=== PATIENT | male | born 1990 | race Caucasian/White ===

== ENCOUNTER 2024-01-05 12:13 | Emergency (ER) | payer MEDICARE, SELFPAY ==
[2024-01-05 12:13] VITALS: BP 135/98; PULSE 100; RESP 14; TEMP 36.6; O2SAT 98; BMI 24.1
--- NOTE | 2024-01-05 12:58 | EKG12_ITS ---
Test Reason : CHEST PAIN Blood Pressure : / mmHG Vent. Rate : 074 BPM Atrial Rate : 074 BPM P-R Int : 112 ms QRS Dur : 092 ms QT Int : 356 ms P-R-T Axes : 061 071 051 degrees QTc Int : 395 ms Normal sinus rhythm with sinus arrhythmia Normal ECG Confirmed by Quintin King ([id number]), index editor MARCELINO BARBER ([id number]) on 01/06/2024 9:55:00 AM Referred By: Confirmed By:Quintin King
--- NOTE | 2024-01-05 13:00 | NURSING ---
NO OLD EKGS
[2024-01-05 13:18] LABS: Absolute Lymphocyte Count 2.04 X10^3/uL (0.83-4.51); Absolute Neutrophil Count 8.9 X10^3/uL (2.0-7.7); Basophil# 0.05 X10^3/uL; Basophil% 0.4 % (0-1); Eosinophil# 0.04 X10^3/uL; Eosinophils% 0.3 % (0-5); Hematocrit 48.6 % (40-54); Hemoglobin 15.9 g/dL (13.0-16.5); Lymphocyte # 2.04 X10^3/ul (0.83-4.51); Lymphocyte % 17.1 % (19-41); Mean Corp Hgb Conc 32.7 g/dL (32-36); Mean Corpuscular Hgb 26.9 pg (27.0-32.0); Mean Corpuscular Volume 82.4 fL (80-94); Monocyte# 0.87 X10^3/uL; Monocyte% 7.3 % (0-10); NRBC Flagged by Analyzer 0 % (0-5); Neutrophil # 8.88 X10^3/uL (2.7-7.7); Neutrophil % 74.6 % (47-70); Platelet Count 286 K/mm3 (150-450); RBC Distribution Width SD 36.2 fl (35.1-43.9); White Blood Count 11.9 K/mm3 (4.4-11.0)
--- NOTE | 2024-01-05 13:20 | RAD_ITS ---
STUDY: X-RAY CHEST REASON FOR EXAM: Male, 33 years old. Left-sided chest pain. TECHNIQUE: Single AP portable view of the chest. COMPARISON: None. FINDINGS: EKG electrodes are seen. The lungs are clear and expanded. There is no demonstrated pleural abnormality. Normal size heart. Normal mediastinum and demarco. Normal visualized pulmonary arteries. Normal visualized aortic arch and descending thoracic aorta. Normal visualized thoracic spine. Normal visualized ribs, clavicles, and shoulders. There is no demonstrated abnormality of the visualized soft tissue structures of the upper abdomen. RAD/Chest 1 View (Portable) IMPRESSION: Normal x-ray examination of the chest. Electronically Signed: Aniket Ayers MD at 13:39 EDT ,
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
[2024-01-05 13:37] LABS: Anion Gap 8 (5-15); BUN 20 mg/dL (7-18); BUN/Creat Ratio 20.4 RATIO (10-20); Calcium,Total 9.4 mg/dL (8.5-10.1); Chloride 100 mmol/L (98-107); Creatinine, Serum 0.98 mg/dL (0.70-1.30); EST Glomerular Filtration Rate 93 mL/min (>60); Est Glom Filt Rate - Afr Amer 112 mL/min (>60); Estimated Creatinine Clearance 105.21 ml/min; Glucose 84 mg/dL (74-106); Potassium 4.2 mmol/L (3.5-5.1); Sodium Level 136 mmol/L (136-145); Troponin-I HS 14 pg/mL (3.0-78.0)
[2024-01-05] MEDS: Ondansetron 4 MG/2 ML Vial IV (13:49)
[2024-01-05] MEDS: Ketorolac 15 MG/ML Vial IV (13:49)
[2024-01-05 14:13] VITALS: BP 161/77; PULSE 58; RESP 16; O2SAT 98
[2024-01-05 15:46] VITALS: BP 155/89; PULSE 85; RESP 19; TEMP 36.6; O2SAT 98
== END 2024-01-05 15:47 | disposition home or self-care (01) ==
PROVIDERS: Emergency Provider Student in an Organized Health Care Education/Training Program; Visit Provider Student in an Organized Health Care Education/Training Program
DX: R07.89 Other chest pain (principal); J44.9 Chronic obstructive pulmonary disease, unspecified; R55 Syncope and collapse; F17.210 Nicotine dependence, cigarettes, uncomplicated
CPT/HCPCS: 71045; 80048; 84484; 85025; 93005; 96374; 96375; 99284; A4216; J2405

== ENCOUNTER 2024-01-31 10:40 | Emergency (ER) | payer MEDICARE, SELFPAY ==
[2024-01-31 10:42] VITALS: BP 159/87; PULSE 99; RESP 18; TEMP 36.6; O2SAT 97
[2024-01-31 10:44] VITALS: BMI 25.0
--- NOTE | 2024-01-31 10:52 | RAD_ITS ---
STUDY: X-RAY - SOFT TISSUE NECK REASON FOR EXAM: Male, 33 years old. Dysphagia TECHNIQUE: 2 view(s) of the neck were obtained. COMPARISON: None. FINDINGS: Normal visualized nasopharynx, oropharynx, hypopharynx. Normal epiglottis. Normal visualized subglottic tracheal air column. Normal prevertebral soft tissue structures. Mild degenerative changes in the lower C-spine. The soft tissue structures are unremarkable. RAD/Neck for Soft Tissue IMPRESSION: Normal x-ray soft tissue neck. Electronically Signed: Servando Rai MD at 11:18 EDT ,
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
[2024-01-31] MEDS: DiphenhydrAMINE 25 MG Capsule PO (11:00)
[2024-01-31 12:11] VITALS: BP 137/88; PULSE 78; RESP 18; TEMP 36.6; O2SAT 98
== END 2024-01-31 12:11 | disposition home or self-care (01) ==
PROVIDERS: Emergency Provider Emergency Medicine; Visit Provider Emergency Medicine
DX: R09.89 Other specified symptoms and signs involving the circulatory and respiratory systems (principal); E11.9 Type 2 diabetes mellitus without complications; F17.210 Nicotine dependence, cigarettes, uncomplicated; Z88.0 Allergy status to penicillin
CPT/HCPCS: 70360; 99282

== ENCOUNTER 2024-02-03 11:55 | Emergency (ER) | payer MEDICARE, SELFPAY ==
[2024-02-03 11:55] VITALS: BP 153/96; PULSE 59; RESP 19; TEMP 36.6; O2SAT 98
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
[2024-02-03] MEDS: Ondansetron 4 MG/2 ML Vial IV (13:06)
[2024-02-03] MEDS: morphine 8 MG/ML Syringe IV (13:06)
[2024-02-03] MEDS: 0.9% Normal Saline (1000mL) 1,000 ML 999 ML IV (13:10)
[2024-02-03 13:12] LABS: Bedside Glucose 93 mg/dL (74-106)
[2024-02-03 13:28] LABS: ALB/GLOB Ratio 1.1 RATIO (0.9-2.4); AST(SGOT) 36 U/L (15-37); Alanine Aminotransfer ALT/SGPT 62 U/L (16-61); Albumin, Serum 4.2 g/dL (3.2-5.0); Alkaline Phosphatase 77 U/L (45-117); Anion Gap 7 (5-15); BUN 12 mg/dL (7-18); BUN/Creat Ratio 15.2 RATIO (10-20); Calcium,Total 9.5 mg/dL (8.5-10.1); Chloride 103 mmol/L (98-107); Creatinine, Serum 0.79 mg/dL (0.70-1.30); EST Glomerular Filtration Rate 118 mL/min (>60); Est Glom Filt Rate - Afr Amer 143 mL/min (>60); Globulin 3.8 g/dL (2.2-4.2); Glucose 97 mg/dL (74-106); Lipase 19 U/L (13-75); Potassium 4.1 mmol/L (3.5-5.1); Sodium Level 139 mmol/L (136-145)
[2024-02-03 13:31] LABS: Absolute Lymphocyte Count 1.24 X10^3/uL (0.83-4.51); Absolute Neutrophil Count 6.7 X10^3/uL (2.0-7.7); Basophil# 0.03 X10^3/uL; Basophil% 0.3 % (0-1); Eosinophil# 0.02 X10^3/uL; Eosinophils% 0.2 % (0-5); Hematocrit 48.6 % (40-54); Hemoglobin 15.8 g/dL (13.0-16.5); Lymphocyte # 1.24 X10^3/ul (0.83-4.51); Lymphocyte % 14.2 % (19-41); Mean Corp Hgb Conc 32.5 g/dL (32-36); Mean Corpuscular Hgb 27.1 pg (27.0-32.0); Mean Corpuscular Volume 83.4 fL (80-94); Mean Platelet Vol. 12.3 fl (6.2-12.0); Monocyte# 0.75 X10^3/uL; Monocyte% 8.6 % (0-10); NRBC Flagged by Analyzer 0 % (0-5); Neutrophil # 6.69 X10^3/uL (2.7-7.7); Neutrophil % 76.5 % (47-70); Platelet Count 262 K/mm3 (150-450); RBC Distribution Width CV 12.8 % (11.6-14.6); RBC Distribution Width SD 38.5 fl (35.1-43.9); Red Blood Count 5.83 M/mm3 (4.6-6.2); White Blood Count 8.8 K/mm3 (4.4-11.0)
[2024-02-03 13:39] LABS: Mucous, Urine 0 SEEN /hpf (<or=2+); Red Blood Cells-Urine 0 SEEN /hpf (0-5); Squamous Epithelial Cells - UA 0 SEEN /hpf (0-5)
[2024-02-03 13:40] LABS: Color, Urine Yellow (Yellow); Glucose, Dipstick Normal (Normal); Leukocyte Esterase-Dipstick 25 /ul (Negative); Nitrite-Dipstick Negative (Negative); Occult Blood-Urine Negative /ul (Negative); Protein-Dipstick 30 mg/dl (Negative); Specific Gravity, Urine 1.015 (1.002-1.030); Urine Clarity Clear (Clear); Urine Urobilinogen 1 mg/dl (Normal)
[2024-02-03 13:43] LABS: Urine Bilirubin Dipstick 1 mg/dL (Negative)
[2024-02-03 13:45] LABS: Ketone-Dipstick 150 mg/dl (Negative)
--- NOTE | 2024-02-03 13:45 | CT_ITS ---
STUDY: CT ABDOMEN AND PELVIS WITH CONTRAST REASON FOR EXAM: Male, 33 years old. abd pain RADIATION DOSAGE (If Supplied By Facility): CTDIvol = ( 6.66 ) mGy, DLP = ( 371.86 ) mGycm TECHNIQUE: Transaxial images were obtained from the dome of the diaphragm to the symphysis pubis without oral contrast. IV 100mL Isovue-300 was administered. Sagittal and coronal images were reconstructed. Individualized dose optimization techniques were used for this CT. COMPARISON: None. FINDINGS: Minimal increased markings in the posterior aspect of the lingular segment of the left upper lobe suggestive of atelectasis. The visualized portions of the heart are within normal limits. Normal liver. Normal gallbladder and extrahepatic biliary system. There is evidence of a peripheral calcification along the lateral aspect of the spleen extending from the superior pole to the inferior pole. This may represent cysts or sequela of prior injury. Normal pancreas. Normal bilateral adrenal glands. Normal right kidney. Normal left kidney. Normal visualized stomach. Normal small intestine. Normal colon. The appendix is visualized and appears normal. There is scattered atherosclerotic calcification of the abdominal aorta, without a demonstrated aneurysm. Normal inferior vena cava. There is a small retroperitoneal lymphadenopathy with enlarged nodes no greater than 10mm in the short axis diameter. Normal urinary bladder. Normal abdominal wall. Normal osseous structures. CT/Abdomen/Pelvis W IV Cont ONLY IMPRESSION: Rim-like calcification along the lateral aspect of the spleen extending from the cranial to the caudal region of the spleen suggestive of old injury. N.B. : The above Results were Read Back by Aniket Ayers MD to Santosh Paula MD, and understanding confirmed on 02/03/2024 14:06:25 (ET). Electronically Signed: Aniket Ayers MD at 14:07 EDT ,
[2024-02-03 13:47] LABS: Bacteria 1+ /hpf (None Seen); White Blood Cells 0-5 SEEN /hpf (0-5)
[2024-02-03 13:56] VITALS: BP 140/85; PULSE 58; RESP 17; O2SAT 98
[2024-02-03 14:02] VITALS: PULSE 65; RESP 13; O2SAT 97
[2024-02-03 14:48] VITALS: BP 140/70; PULSE 55; RESP 15; TEMP 36.4; O2SAT 98
== END 2024-02-03 14:55 | disposition home or self-care (01) ==
PROVIDERS: Emergency Provider Emergency Medicine; Visit Provider Emergency Medicine
DX: R10.30 Lower abdominal pain, unspecified (principal); E11.9 Type 2 diabetes mellitus without complications; F17.210 Nicotine dependence, cigarettes, uncomplicated
CPT/HCPCS: 74177; 80053; 81001; 82962; 83690; 85025; 96361; 96374; 96375; 99283; J7030; Q9967; A4216; J2405

== ENCOUNTER 2024-02-27 18:49 | Emergency (ER) | payer MEDICARE, SELFPAY ==
[2024-02-27 18:49] VITALS: BP 162/93; PULSE 87; RESP 16; TEMP 36.6; O2SAT 97; BMI 24.0
[2024-02-27 18:59] VITALS: BMI 24.7
--- NOTE | 2024-02-27 19:16 | CT_ITS ---
INDICATION: weakness EXAMINATION: CT BRAIN - CT Head or Brain W/O Contrast Injection TECHNIQUE: Multiple axial images were obtained of the head without intravenous contrast. The protocol utilizes one or more of the following dose reduction techniques: automated exposure control, adjustment of mA and/or kV according to patient size,and/or use of iterative reconstruction technique. IV Contrast dosage and agent: None. RADIATION DOSAGE (If Supplied By Facility): CTDIvol = ( 44.99 ) mGy, DLP = ( 7453.49 ) mGycm COMPARISON: No relevant prior comparison study available FINDINGS: BRAIN: No acute bleed. No edema. Edwards-white matter differentiation is maintained. VENTRICLES AND SULCI: Not dilated. EXTRA-AXIAL: No hemorrhage, fluid collection, or mass. CALVARIUM / SKULL BASE: Unremarkable. FACE/SINUSES: Unremarkable. SOFT TISSUES: Unremarkable. CT/Brain/Head without Contrast IMPRESSION: No acute abnormality. CT angiogram and/or MRI may be helpful to evaluate for acute infarct as clinically indicated. Electronically Signed: Rosemarie Gupta MD at 19:57 EDT ,
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
--- NOTE | 2024-02-27 19:30 | EKG12_ITS ---
Test Reason : GEN ILLNESS Blood Pressure : / mmHG Vent. Rate : 066 BPM Atrial Rate : 066 BPM P-R Int : 124 ms QRS Dur : 092 ms QT Int : 388 ms P-R-T Axes : 040 067 060 degrees QTc Int : 406 ms Normal sinus rhythm Normal ECG Confirmed by LYNDSEY GORDON MD ([id number]), production editor AMANDA PÉREZ ([id number]) on 03/01/2024 8:14:36 AM Referred By: IMTIAZ Confirmed By:LYNDSEY GORDON MD
[2024-02-27 19:38] LABS: Absolute Lymphocyte Count 1.65 X10^3/uL (0.83-4.51); Absolute Neutrophil Count 6.2 X10^3/uL (2.0-7.7); Basophil# 0.05 X10^3/uL; Basophil% 0.6 % (0-1); Eosinophil# 0.09 X10^3/uL; Hematocrit 45.4 % (40-54); Hemoglobin 14.9 g/dL (13.0-16.5); Lymphocyte # 1.65 X10^3/ul (0.83-4.51); Mean Corp Hgb Conc 32.8 g/dL (32-36); Mean Corpuscular Hgb 27.4 pg (27.0-32.0); Mean Corpuscular Volume 83.5 fL (80-94); Mean Platelet Vol. 11.8 fl (6.2-12.0); Monocyte# 0.68 X10^3/uL; Monocyte% 7.8 % (0-10); NRBC Flagged by Analyzer 0 % (0-5); Neutrophil # 6.18 X10^3/uL (2.7-7.7); Neutrophil % 71.3 % (47-70); Platelet Count 225 K/mm3 (150-450); RBC Distribution Width SD 39.6 fl (35.1-43.9); Red Blood Count 5.44 M/mm3 (4.6-6.2); White Blood Count 8.7 K/mm3 (4.4-11.0)
--- NOTE | 2024-02-27 19:48 | RAD_ITS ---
INDICATION: chest pain EXAMINATION/TECHNIQUE: X-RAY - XR Chest 1 View AP portable. 7:46 PM. COMPARISON: 01/05/2024 FINDINGS: LINES/DEVICES: None. LUNGS: No consolidation. No pneumothorax. MEDIASTINUM: Unremarkable. CARDIAC SILHOUETTE: Not enlarged. BONES AND SOFT TISSUES: No acute abnormalities. RAD/Chest 1 View (Portable) IMPRESSION: No evidence of active intrathoracic disease. Electronically Signed: Rosemarie Gupta MD at 20:14 EDT ,
[2024-02-27 19:52] LABS: Anion Gap 6 (5-15); BUN 14 mg/dL (7-18); BUN/Creat Ratio 14.4 RATIO (10-20); Calcium,Total 9.1 mg/dL (8.5-10.1); Chloride 104 mmol/L (98-107); Creatinine, Serum 0.97 mg/dL (0.70-1.30); EST Glomerular Filtration Rate 93 mL/min (>60); Est Glom Filt Rate - Afr Amer 113 mL/min (>60); Estimated Creatinine Clearance 106.29 ml/min; Glucose 126 mg/dL (74-106); Potassium 3.6 mmol/L (3.5-5.1); Sodium Level 139 mmol/L (136-145); Troponin-I HS 10 pg/mL (3.0-78.0)
[2024-02-27 20:49] VITALS: BP 143/71; PULSE 66; RESP 18; O2SAT 97
[2024-02-27 22:00] VITALS: BP 130/82; PULSE 58; RESP 16; O2SAT 94
[2024-02-27 22:07] VITALS: BP 130/82; PULSE 59; RESP 16; TEMP 36.8; O2SAT 98
== END 2024-02-27 22:07 | disposition home or self-care (01) ==
PROVIDERS: Emergency Provider Emergency Medicine; Visit Provider Emergency Medicine
DX: M62.81 Muscle weakness (generalized) (principal); R07.89 Other chest pain; M25.511 Pain in right shoulder; M25.512 Pain in left shoulder; F17.210 Nicotine dependence, cigarettes, uncomplicated; Z85.841 Personal history of malignant neoplasm of brain
CPT/HCPCS: 70450; 71045; 80048; 84484; 85025; 93005; 99284; A4216

== ENCOUNTER 2024-03-09 16:42 | Emergency (ER) | payer MEDICARE, SELFPAY ==
[2024-03-09 16:43] VITALS: BP 163/75; PULSE 92; RESP 17; TEMP 37.2; O2SAT 99; BMI 22.8
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
[2024-03-09] MEDS: Dicyclomine 20 MG/2 ML Vial IM (17:05)
[2024-03-09] MEDS: DiphenhydrAMINE 50 MG/ML Syringe 25 MG IV (17:05)
[2024-03-09 17:10] LABS: Absolute Lymphocyte Count 1.25 X10^3/uL (0.83-4.51); Absolute Neutrophil Count 17.4 X10^3/uL (2.0-7.7); Basophil# 0.06 X10^3/uL; Basophil% 0.3 % (0-1); Eosinophil# 0.15 X10^3/uL; Eosinophils% 0.7 % (0-5); Hematocrit 48.3 % (40-54); Hemoglobin 15.8 g/dL (13.0-16.5); Lymphocyte # 1.25 X10^3/ul (0.83-4.51); Lymphocyte % 6.2 % (19-41); Mean Corp Hgb Conc 32.7 g/dL (32-36); Mean Corpuscular Hgb 27.7 pg (27.0-32.0); Mean Corpuscular Volume 84.7 fL (80-94); Monocyte% 5.5 % (0-10); NRBC Flagged by Analyzer 0 % (0-5); Neutrophil # 17.38 X10^3/uL (2.7-7.7); Neutrophil % 86.8 % (47-70); Platelet Count 257 K/mm3 (150-450); RBC Distribution Width CV 13.1 % (11.6-14.6); RBC Distribution Width SD 39.9 fl (35.1-43.9)
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
[2024-03-09 17:27] LABS: Color, Urine Yellow (Yellow); Glucose, Dipstick Normal (Normal); Ketone-Dipstick 50 mg/dl (Negative); Leukocyte Esterase-Dipstick 25 /ul (Negative); Nitrite-Dipstick Negative (Negative); Occult Blood-Urine Negative /ul (Negative); Protein-Dipstick Negative (Negative); Red Blood Cells-Urine 0 SEEN /hpf (0-5); Urine Bilirubin Dipstick Negative (Negative); Urine Clarity Sl. Cloudy (Clear); Urine Urobilinogen 4 mg/dl (Normal)
[2024-03-09 17:31] LABS: AST(SGOT) 21 U/L (15-37); Alanine Aminotransfer ALT/SGPT 39 U/L (16-61); Albumin, Serum 4.4 g/dL (3.2-5.0); Alkaline Phosphatase 74 U/L (45-117); Anion Gap 4 (5-15); BUN 11 mg/dL (7-18); BUN/Creat Ratio 11.2 RATIO (10-20); Bilirubin, Direct 0.28 mg/dL (0.00-0.30); Calcium,Total 9.6 mg/dL (8.5-10.1); Chloride 102 mmol/L (98-107); Creatinine, Serum 0.98 mg/dL (0.70-1.30); EST Glomerular Filtration Rate 93 mL/min (>60); Est Glom Filt Rate - Afr Amer 112 mL/min (>60); Estimated Creatinine Clearance 104.62 ml/min; Globulin 3.6 g/dL (2.2-4.2); Glucose 91 mg/dL (74-106); Lipase 15 U/L (13-75); Potassium 3.9 mmol/L (3.5-5.1); Sodium Level 136 mmol/L (136-145)
[2024-03-09 17:37] LABS: Amorphous Sediment 1+; Bacteria 1+ /hpf (None Seen); Squamous Epithelial Cells - UA 0-5 SEEN /hpf (0-5); White Blood Cells 0-5 SEEN /hpf (0-5)
--- NOTE | 2024-03-09 17:39 | CT_ITS ---
INDICATION: abdominal pain EXAMINATION: CT ABDOMEN AND PELVIS with CONTRAST - CT Abdomen And Pelvis W/ Contrast Injection TECHNIQUE: Multiple axial images were obtained of the abdomen and pelvis following administration of IV contrast. Planar reconstructions obtained. A radiation dose optimization technique was used for this scan. RADIATION DOSAGE (If Supplied By Facility): CTDIvol = ( 11.91 ) mGy, DLP = ( 536.81 ) mGycm IV Contrast dosage and agent: 100 mL [id number] Oral contrast: None. COMPARISON: 02/03/2024 FINDINGS: LOWER CHEST: 1. Lung bases are clear. 2. No cardiomegaly or pericardial effusion. 3. No significant coronary vascular calcifications. HEPATOBILIARY: Liver: The liver is homogeneous and shows no evidence of focal lesion. Gallbladder: The gallbladder is unremarkable. Pancreas: Pancreas is normal size configuration and density. No mass is noted. Spleen: Spleen has unchanged size and configuration. There is a sheetlike pattern of hyperdensity along the surface of the spleen laterally without interval change in previously suggested within the peripheral rim calcification. There has been negligible change.. BOWEL: Stomach: The stomach is normal in size configuration, no evidence of focal masses, abnormal calcifications. No hiatal hernia noted. Bowel: Small and large have normal configuration, no masses or bowel obstruction noted. There are scattered segments of fluid-filled bowel with small air-fluid levels. Findings are nonspecific. Appendix: The visualized appendix has normal appearance.: GENITOURINARY: Adrenals: Both adrenal glands are normal in size. Kidneys: Kidneys appear symmetric in size. No calcifications are seen in the collecting system. There is no hydronephrosis or surrounding fluid. Bladder: Normal Pelvic organs: The visualized pelvic organs are normal in size and configuration. No masses or adenopathy noted. RETROPERITONEUM: There is normal appearance of the abdominal aorta and inferior vena cava. LYMPH NODES: No evidence of retroperitoneal or para-aortic masses fluid collections or adenopathy. PERITONEAL CAVITY: No ascites noted ANTERIOR ABDOMINAL WALL: Normal, no hernia identified. BONES AND SOFT TISSUES: No fractures or destructive bony process. Marginal osteophyte formation is noted posteriorly at L1-2 and L2-3. No acute bony changes. OTHER: None CT/Abdomen/Pelvis W IV Cont ONLY IMPRESSION: 1. No masses bowel obstruction abscess free fluid or free air. 2. Scattered segments of fluid-filled bowel with small air-fluid levels. Findings are nonspecific, however mild enteritis is a consideration. 3. Normal appendix. No evidence diverticulitis. 4. No evidence of renal calcification or obstructive uropathy. 5. No evidence cholelithiasis. 6. No acute bony changes. Electronically Signed: Moo Benavides MD at 19:02 EDT ,
[2024-03-09 17:40] LABS: Mucous, Urine 1+ /hpf (<or=2+)
[2024-03-09 18:42] VITALS: BP 127/58; PULSE 68; RESP 16; O2SAT 96
[2024-03-09 19:23] VITALS: BP 119/53; PULSE 66; RESP 17; TEMP 37.3; O2SAT 94
== END 2024-03-09 19:28 | disposition home or self-care (01) ==
PROVIDERS: Emergency Provider Emergency Medicine; Referring Provider Emergency Medicine; Visit Provider Emergency Medicine
DX: R10.9 Unspecified abdominal pain (principal); R19.7 Diarrhea, unspecified; R11.10 Vomiting, unspecified; F17.200 Nicotine dependence, unspecified, uncomplicated
CPT/HCPCS: 74177; 80048; 80076; 81001; 83690; 85025; 96372; 96374; 99283; Q9967; A4216

== ENCOUNTER 2024-04-25 21:16 | Emergency (ER) | payer MEDICARE, SELFPAY ==
[2024-04-25 21:18] VITALS: BP 142/95; PULSE 100; RESP 18; TEMP 36.9; O2SAT 96; BMI 23.3
--- NOTE | 2024-04-25 22:21 | RAD_ITS ---
EXAM: XR CHEST, 2 VIEWS CLINICAL INDICATION: cough, chest pressure TECHNIQUE: Frontal and lateral views of the chest. COMPARISON: Single view chest 02/27/2024 FINDINGS: LUNGS AND PLEURAL SPACES: Unremarkable. No consolidation or edema. No pneumothorax. No effusion. HEART: Unremarkable. Cardiac silhouette not enlarged. MEDIASTINUM: Central airways and mediastinal contour are unremarkable. BONES/JOINTS: Unremarkable. No acute fracture. SOFT TISSUES: Unremarkable. RAD/Chest PA and Lateral IMPRESSION: No radiographic evidence of acute cardiopulmonary disease. Electronically Signed: Maldonado Mcclellan MD at 23:07 EDT ,
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
--- NOTE | 2024-04-26 01:03 | EKG12_ITS ---
Test Reason : REPEAT Blood Pressure : */* mmHG Vent. Rate : 55 BPM Atrial Rate : 55 BPM P-R Int : 120 ms QRS Dur : 98 ms QT Int : 398 ms P-R-T Axes : 63 73 65 degrees QTcB Int : 380 ms Sinus bradycardia Otherwise normal ECG Confirmed by HEIDI BRAVO, LYNDSEY ([id number]), brands editor MARCELINO BARBER ([id number]) on 04/26/2024 1:11:38 PM Referred By: Confirmed By: LYNDSEY GORDON MD
[2024-04-26 01:17] VITALS: BP 129/110; PULSE 79; RESP 18; O2SAT 98
[2024-04-26] MEDS: Mag Hydrox/Al Hydrox/Simeth 30 ML UDC PO (01:18)
[2024-04-26] MEDS: Lidocaine 2% Viscous15 ML UDC 15 ML PO (01:18)
[2024-04-26] MEDS: Famotidine 200 MG/20 ML MDV 20 MG in 0.9% Normal Saline (Pres. free 8 ML 300 MG IV (01:19)
[2024-04-26 01:34] LABS: Absolute Lymphocyte Count 2.01 X10^3/uL (0.83-4.51); Absolute Neutrophil Count 10.6 X10^3/uL (2.0-7.7); Basophil# 0.05 X10^3/uL; Basophil% 0.4 % (0-1); Eosinophil# 0.06 X10^3/uL; Eosinophils% 0.4 % (0-5); Hematocrit 46.9 % (40-54); Hemoglobin 15.8 g/dL (13.0-16.5); Lymphocyte # 2.01 X10^3/ul (0.83-4.51); Lymphocyte % 14.4 % (19-41); Mean Corp Hgb Conc 33.7 g/dL (32-36); Mean Corpuscular Hgb 28.2 pg (27.0-32.0); Mean Corpuscular Volume 83.6 fL (80-94); Mean Platelet Vol. 11.8 fl (6.2-12.0); Monocyte# 1.17 X10^3/uL; Monocyte% 8.4 % (0-10); NRBC Flagged by Analyzer 0 % (0-5); Neutrophil # 10.64 X10^3/uL (2.7-7.7); Neutrophil % 76.1 % (47-70); Platelet Count 252 K/mm3 (150-450); RBC Distribution Width CV 12.6 % (11.6-14.6); RBC Distribution Width SD 38.1 fl (35.1-43.9); Red Blood Count 5.61 M/mm3 (4.6-6.2)
[2024-04-26 01:53] LABS: Anion Gap 8 (5-15); BUN 9 mg/dL (7-18); BUN/Creat Ratio 10.8 RATIO (10-20); Calcium,Total 9.5 mg/dL (8.5-10.1); Chloride 103 mmol/L (98-107); Creatinine, Serum 0.84 mg/dL (0.70-1.30); EST Glomerular Filtration Rate 111 mL/min (>60); Est Glom Filt Rate - Afr Amer 134 mL/min (>60); Estimated Creatinine Clearance 122.74 ml/min; Glucose 98 mg/dL (74-106); Potassium 3.9 mmol/L (3.5-5.1); Sodium Level 140 mmol/L (136-145); Troponin-I HS (w/2H Reflex) 9 pg/mL (3.0-78.0)
[2024-04-26 03:27] LABS: Reflex Troponin-HS? (from REC) Y
[2024-04-26 03:55] LABS: Troponin-I HS 10 pg/mL (3.0-78.0)
[2024-04-26 04:16] VITALS: BP 144/75; PULSE 54; RESP 16; TEMP 36.9; O2SAT 100
== END 2024-04-26 04:16 | disposition home or self-care (01) ==
PROVIDERS: Emergency Provider Emergency Medicine; Visit Provider Emergency Medicine
DX: R07.9 Chest pain, unspecified (principal); E11.9 Type 2 diabetes mellitus without complications; D72.829 Elevated white blood cell count, unspecified; F17.200 Nicotine dependence, unspecified, uncomplicated
CPT/HCPCS: 71046; 80048; 84484; 85025; 87631; 93005; 96374; 99285; A4216; J3490

== ENCOUNTER → 2024-07-19 | Outpatient (CLI) | payer MEDICARE, SELFPAY ==
[2024-07-19 15:43] LABS: Absolute Lymphocyte Count 1.55 X10^3/uL (0.83-4.51); Absolute Neutrophil Count 4.6 X10^3/uL (2.0-7.7); Basophil# 0.04 X10^3/uL; Basophil% 0.6 % (0-1); Eosinophil# 0.09 X10^3/uL; Eosinophils% 1.3 % (0-5); Hematocrit 44.3 % (40-54); Hemoglobin 14.5 g/dL (13.0-16.5); Lymphocyte # 1.55 X10^3/ul (0.83-4.51); Mean Corp Hgb Conc 32.7 g/dL (32-36); Mean Corpuscular Hgb 27.8 pg (27.0-32.0); Mean Corpuscular Volume 84.9 fL (80-94); Mean Platelet Vol. 11.6 fl (6.2-12.0); Monocyte# 0.74 X10^3/uL; Monocyte% 10.5 % (0-10); NRBC Flagged by Analyzer 0 % (0-5); Neutrophil % 65.5 % (47-70); Platelet Count 250 K/mm3 (150-450); RBC Distribution Width CV 12.5 % (11.6-14.6); RBC Distribution Width SD 38.5 fl (35.1-43.9); Red Blood Count 5.22 M/mm3 (4.6-6.2)
[2024-07-19 16:19] LABS: ALB/GLOB Ratio 1.3 RATIO (0.9-2.4); AST(SGOT) 20 U/L (15-37); Alanine Aminotransfer ALT/SGPT 42 U/L (16-61); Albumin, Serum 4.1 g/dL (3.2-5.0); Alkaline Phosphatase 69 U/L (45-117); Anion Gap 7 (5-15); BUN 12 mg/dL (7-18); BUN/Creat Ratio 13.6 RATIO (10-20); Calcium,Total 9.3 mg/dL (8.5-10.1); Chloride 103 mmol/L (98-107); Creatinine, Serum 0.88 mg/dL (0.70-1.30); EST Glomerular Filtration Rate 104 mL/min (>60); Est Glom Filt Rate - Afr Amer 126 mL/min (>60); Globulin 3.2 g/dL (2.2-4.2); Glucose 96 mg/dL (74-106); Protein, Total 7.3 g/dL (6.4-8.2); Sodium Level 140 mmol/L (136-145)
== END | disposition home or self-care (01) ==
LOC: LAB 15:01
PROVIDERS: Referring Provider Nurse Practitioner Acute Care; Visit Provider Nurse Practitioner Acute Care
DX: R10.9 Unspecified abdominal pain (principal); R56.9 Unspecified convulsions; R11.2 Nausea with vomiting, unspecified; R63.4 Abnormal weight loss; R12 Heartburn; K59.00 Constipation, unspecified
CPT/HCPCS: 36415; 80053; 85025

== ENCOUNTER → 2024-08-01 | Outpatient (CLI) | payer OTHER, SELFPAY ==
--- NOTE | 2024-08-01 10:27 | US_ITS ---
EXAM: US Abdomen Limited, Right Upper Quadrant CLINICAL INDICATION: TECHNIQUE: Real-time ultrasound of the right upper quadrant with image documentation. COMPARISON: No relevant prior studies available. FINDINGS: LIVER: Hepatopetal blood flow in the main portal vein. Liver measures 15.4 cm. No intrahepatic bile duct dilation. GALLBLADDER: Negative La's sign was reported by the law examiner. No gallstones. COMMON BILE DUCT: Unremarkable as visualized. No stones. No dilation. Common bile duct measures 0.46 cm in diameter. PANCREAS: Unremarkable as visualized. RIGHT KIDNEY: Unremarkable. No stones. No hydronephrosis. The right kidney measures 10.5 x 4.6 x 4.3 cm. US/Abdomen Limited IMPRESSION: No acute findings in the right upper quadrant. Reading [facility]
== END | disposition home or self-care (01) ==
LOC: US 10:26
PROVIDERS: Referring Provider Nurse Practitioner Acute Care; Visit Provider Nurse Practitioner Acute Care
DX: R10.11 Right upper quadrant pain (principal); R56.9 Unspecified convulsions; R11.2 Nausea with vomiting, unspecified; R63.4 Abnormal weight loss; R12 Heartburn; K59.00 Constipation, unspecified
CPT/HCPCS: 76705

== ENCOUNTER 2024-08-02 13:51 | Emergency (ER) | payer OTHER, SELFPAY ==
[2024-08-02 13:53] VITALS: BP 141/95; PULSE 58; RESP 16; TEMP 35.7; O2SAT 99; BMI 23.0
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
[2024-08-02 14:51] VITALS: BP 134/75; PULSE 58; RESP 16; TEMP 36.9; O2SAT 98
== END 2024-08-02 14:57 | disposition home or self-care (01) ==
LOC: ED 14:55
PROVIDERS: Emergency Provider Emergency Medicine; Visit Provider Emergency Medicine
DX: M62.838 Other muscle spasm (principal); F17.200 Nicotine dependence, unspecified, uncomplicated
CPT/HCPCS: 99282

== ENCOUNTER 2025-04-06 17:00 | Emergency (ER) | payer MEDICARE, SELFPAY ==
[2025-04-06 17:00] VITALS: BP 186/94; PULSE 72; RESP 16; TEMP 36.8; O2SAT 98; BMI 24.8
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
--- NOTE | 2025-04-06 17:56 | CT_ITS ---
PROCEDURE: BRAIN/HEAD WITHOUT CONTRAST N/A REASON FOR EXAM: HEADACHE, HIGH BLOOD PRESSURE TECHNIQUE: Procedure Code: CTBR Modality: CT Procedure: BRAIN/HEAD WITHOUT CONTRAST Coronal and Sagittal reconstruction series were provided. One or more dose reduction techniques were used (e.g., Automated exposure control, adjustment of the mA and/or kV according to patient size, use of iterative reconstruction technique. RADIATION DOSE SUMMARY: CTDlvol: 44.99 mGy DLP: 779.24 mGycm COMPARISON: None FINDINGS: Brain: Normal CSF Spaces: Normal Sinuses/Mastoids: Clear at visualized levels Bones: No acute bony abnormalities CT/Brain/Head without Contrast IMPRESSION: Normal CT head. No acute abnormalities. Reading Location: [id number]
[2025-04-06] MEDS: Tetracaine 0.5% Ophthalmic Bottle 1 DRP RIGHT EYE (18:25)
[2025-04-06 19:12] VITALS: BP 182/118; PULSE 72; RESP 16; O2SAT 99
[2025-04-06 19:29] VITALS: BP 163/94; PULSE 64; RESP 16; TEMP 36.8; O2SAT 99
== END 2025-04-06 19:32 | disposition home or self-care (01) ==
PROVIDERS: Emergency Provider Emergency Medicine; Visit Provider Emergency Medicine
DX: R51.9 Headache, unspecified (principal); J43.9 Emphysema, unspecified; E11.9 Type 2 diabetes mellitus without complications; R03.0 Elevated blood-pressure reading, without diagnosis of hypertension; I25.2 Old myocardial infarction; F17.200 Nicotine dependence, unspecified, uncomplicated
CPT/HCPCS: 70450; 99283